=== PATIENT | male | born 1995 | race Caucasian/White ===

== ENCOUNTER 2024-06-01 13:42 | Emergency (ER) | payer BC ==
[2024-06-01] MEDS ORDERED: EPINEPHrine 1MG/10ML SYRINGE 1.5IN ONE (13:46)
[2024-06-01 17:22] LABS: HEPATITIS B SURFACE ANTIGEN NEGATIVE (NEGATIVE)
[2024-06-01 17:35] LABS: HIV SCREEN CENTAUR SOURCE NEGATIVE (NEGATIVE)
[2024-06-01 17:43] LABS: HEPATITIS C VIRUS ABY INDEX 0.03 INDEX (<0.8)
== END 2024-06-01 18:57 | disposition expired ==
LOC: EDBD 13:42 → M ED 13:42
DX: I46.8 Cardiac arrest due to other underlying condition (principal); S06.9X9A Unspecified intracranial injury with loss of consciousness of unspecified duration, initial encounter; V28.09XA Other motorcycle driver injured in noncollision transport accident in nontraffic accident, initial encounter; Y92.410 Unspecified street and highway as the place of occurrence of the external cause; Y93.9 Activity, unspecified; Y99.9 Unspecified external cause status
CPT/HCPCS: 32551; 36680; 86803; 87340; 87389; 92950; 99284; J0171